=== PATIENT | female | born 1995 | race Caucasian/White ===

== ENCOUNTER 2016-07-11 15:41 | Outpatient (CLI) | payer MEDICAID ==
[2016-07-11] MEDS ORDERED: ZOFRAN IV ONE (15:58)
[2016-07-11 16:06] VITALS: BP 104/61
[2016-07-11 16:40] LABS: Bilirubin,Urine NEG (Negative); Blood,Urine NEG (Negative); Ketones,Urine NEG (Negative); Leukocyte Esterase,Urine TR (Negative); Mucus,Urine FEW /HPF; Nitrite,Urine NEG (Negative); Protein,Urine <15 mg/dL mg/dL (Negative); Urobilinogen,Urine < 2.0 mg/dL (<2.0)
[2016-07-11] MEDS ORDERED: LACTATED RINGERS 500 ML IV ONE (17:00)
== END 2016-07-11 17:09 | disposition home or self-care (01) ==
LOC: TRG 15:41
PROVIDERS: ATTEND Obstetrics & Gynecology
DX: Z34.90 Encounter for supervision of normal pregnancy, unspecified, unspecified trimester (principal); Z3A.00 Weeks of gestation of pregnancy not specified
CPT/HCPCS: 59025; 81001

== ENCOUNTER 2016-10-22 10:06 | Inpatient (IN) | payer MEDICAID ==
--- NOTE | 2016-10-22 12:22 | History and Physical Report ---
History of Present Illness Date of examination: 10/22/16 History of present illness: Patient presents with c/o contractions during observation had cervical change. her corse was complicated by postive GBS testing Menstrual History Regularity: regular Menses every: 28 days Duration: 4 LMP: 01/07/2016 LMP reliability: month known LMP character: normal test type: urine test Date: 06/03/2016 BC at conception: none Planned ? yes EDC Confirmation: 10/26/2016 Past History : 2 Term Births: 0 Premature Births: 0 Living Children: 0 Para: 0 Mult. Births: 0 Prev : 0 Prev. attempt? 0 Aborta: 1 Elect. Ab: 0 Spont. Ab: 1 Ectopics: 0 # 1 Delivery date: 08/2015 Weeks Gestation: 6 Delivery type: SAB Comments: no D&C Past Medical History: Negative Past Medical History Past Surgical History: negative Past Medical History Anesthesia Complications: negative Anemia: negative Autoimmune Disorder: negative Bleeding Disorder: negative Blood Transfusions: negative Breast Disease: negative Diabetes: negative Heart Disease: negative Hypertension: negative Hepatitis/Liver Disease: negative Kidney Disease/UTI: negative Neurologic/Epilepsy/Migraines: negative Phlebitis/Varicosities: negative Psychiatric: negative Pulmonary Disease/Asthma: negative Thyroid Disease: negative Hospitalizations: negative Surgery (Non-supervisor brine): negative Abnormal PAP: <21 y/o Infertility: negative Uterine Anomaly: negative Uterine Surgery (not C/S): negative Other Gynecologic Problems: negative Family Hx: DM - MGM HTN - M aunt Infection History Hx of STD: none HIV Risk Eval: low risk Hepatitis B Risk Eval: low risk Personal hx. of genital herpes: no Partner hx. of genital herpes: no Rash, Viral, or Febrile illness since last LMP? no Varicella/Chicken Pox Status: Unknown TB Risk: no Genetic History Congenital Heart Defect: Mom: no Dad: no Alda Disease: Mom: no Dad: no Thalassemia Mom: no Dad: no Neural Tube Defect Mom: no Dad: no Down's Syndrome Mom: no Dad: no Sriram-Sachs Mom: no Dad: no Sickle Cell Disease/Trait Mom: no Dad: no Hemophilia Mom: no Dad: no Muscular Dystrophy Mom: no Dad: no Cystic Fibrosis Mom: no Dad: no Chambers Chorea Mom: no Dad: no Mental Retardation Mom: no Dad: no Fragile X Mom: no Dad: no Other Genetic/Chromosomal Disorder Mom: no Dad: no Child w/other defect Mom: no Dad: no Enviromental Exposures Xray Exposure: no Medication, drug, or alcohol use since LMP: no Chemical/Other Exposure: no Exposure to Cat Liter: no Hx of Parvovirus (Fifth Disease): no Occupational Exposure to Children: none Current Allergies: No known allergies Past History - Obstetrical History Expected Date of Delivery: 10/26/16 Actual Gestation: 39 Week(s) 3 Day(s) : 2 Para: 0 Hx # Term Pregnancies: 0 Number of Pregnancies: 0 Spontaneous Abortions: 1 Induced : 0 Number of Living Children: 0 Medications and Allergies Allergies Allergy/AdvReac Type Severity Reaction Status Date / Time No Known Allergies Allergy Unverified 07/11/16 15:56 - Vital Signs Vital signs: Vital Signs Pulse Pulse Ox 79 98 10/22/16 10:31 10/22/16 10:31 Temp Pulse Resp BP Pulse Ox 82 88 10/22/16 10:53 10/22/16 10:53 Results Result Diagrams: 10/22/16 12:15 All other labs normal. Assessment and Plan - Patient Problems (1) Active labor at term Current Visit: Yes Status: Acute Plan to address problem: Admit to labor and delivery follow normal labor protocol. (2) Group B streptococcal carriage complicating Current Visit: Yes Status: Acute Plan to address problem: We'll give and a robotic prophylaxis
[2016-10-22] MEDS ORDERED: MINERAL OIL PO PRN (12:24)
[2016-10-22] MEDS ORDERED: XYLOCAINE 2% INFILTRATI ONE (12:24)
[2016-10-22] MEDS ORDERED: ePHEDrine SULFATE IV PRN ×2 (12:24→14:22)
[2016-10-22] MEDS ORDERED: BRETHINE SUB-Q PRN (12:24)
[2016-10-22] MEDS ORDERED: BRETHINE IVP PRN (12:24)
[2016-10-22] MEDS ORDERED: PHENERGAN PO PRN ×2 (12:24→19:04)
[2016-10-22] MEDS ORDERED: STADOL IV PRN (12:24)
[2016-10-22] MEDS ORDERED: POLYCILLIN/NS 2 GM/100 ML 2 GM/100 ML BAG IV ONE (12:30)
[2016-10-22] MEDS ORDERED: LACTATED RINGERS 1,000 ML IV SCH (13:00)
[2016-10-22] MEDS ORDERED: PITOCin/NS 20 UNIT/1000ML DRIP 20 UNITS/1,000 ML BAG IV SCH ×2 (13:00→19:04)
[2016-10-22 13:15] LABS: Hemoglobin 11.7 gm/dl (10.1-14.3); White Blood Count 14.9 K/mm3 (4.5-11.0)
[2016-10-22 13:40] LABS: Hematocrit 35.5 % (30.3-42.9); Mean Corpuscular HGB Conc 32 % (30-34); Mean Corpuscular Hemoglobin 25 pg (28-32); Mean Corpuscular Volume 79 fl (79-97); Platelet Count 388 K/mm3 (140-440); Red Blood Count 4.52 M/mm3 (3.65-5.03); Red Cell Distribution Width 16.5 % (13.2-15.2)
[2016-10-22] MEDS ORDERED: ePHEDrine SULFATE ONE (14:05)
[2016-10-22] MEDS ORDERED: NARCAN 2 MG/2 ML IV PRN (14:22)
--- NOTE | 2016-10-22 14:22 | Anesthesia Consultation ---
Anesthesia Consult and Med Hx Date of service: 10/22/16 - Airway Anesthetic Teeth Evaluation: Good ROM Head & Neck: Adequate Mental/Hyoid Distance: Adequate Mallampati Class: Class II Intubation Access Assessment: Probably Good - Pulmonary Exam CTA: Yes - Cardiac Exam Cardiac Exam: RRR - Pre-Operative Health Status ASA Pre-Surgery Classification: ASA2 Proposed Anesthetic Plan: Epidural, Spinal - Pulmonary Hx Asthma: No - Cardiovascular System Hx Hypertension: No - Central Nervous System Hx Seizures: No Hx Psychiatric Problems: No - Endocrine Hx Renal Disease: No Hx Hypothyroidism: No Hx Hyperthyroidism: No - Hematic Hx Anemia: No Hx Sickle Cell Disease: No - Additional Comments Anesthesia Medical History Comments: +IUP
[2016-10-22] MEDS ORDERED: fentaNYL-BUPIV 2 MCG/ML-0.125% 200 MCG/100 ML BAG EPIDURAL SCH (15:00)
[2016-10-22] MEDS ORDERED: METHERGINE IM ONE ×2 (16:04→16:29)
[2016-10-22] MEDS ORDERED: POLYCILLIN/NS 1 GM/50 ML 1 GM/50 ML BAG IV SCH (16:26)
--- NOTE | 2016-10-22 16:51 | Procedure Note ---
OB Delivery Note - Delivery Date of Delivery: 10/22/16 Surgeon: LISA SWANSON Estimated blood loss: other (400cc) - Vaginal Delivery presentation: vertex Delivery position: OA Intrapartum events: meconium Delivery induction: none Delivery monitor: external FHT, external uterine Route of delivery: Delivery placenta: spontaneous Delivery cord: 3 umbilical vessels Episiotomy: none Delivery laceration: vaginal side wall Delivery repair: vicryl Anesthesia: epidural Delivery comments: Delivery complicated by a left vaginal sidewall laceration and a left vulva laceration both repaired with 3-0 Vicryl Methergine given due to uterine uterine atony post delivery. - Infant A at 1 minute: 8 at 5 minutes: 9 Infant Gender: Female
[2016-10-22] MEDS ORDERED: DULCOLAX PR PRN (19:04)
[2016-10-22] MEDS ORDERED: BENADRYL PO PRN (19:04)
[2016-10-22] MEDS ORDERED: MILK OF MAGNESIA PO PRN (19:04)
[2016-10-22] MEDS ORDERED: ZOFRAN IV PRN (19:04)
[2016-10-22] MEDS ORDERED: TYLENOL PO PRN (19:04)
[2016-10-22] MEDS ORDERED: TUCKS PAD TP PRN (19:04)
[2016-10-22] MEDS ORDERED: DERMOPLAST TP PRN (19:04)
[2016-10-22] MEDS ORDERED: NORCO 5/325 PO PRN (19:04)
[2016-10-22] MEDS ORDERED: LANSINOH TP PRN (19:04)
[2016-10-22] MEDS ORDERED: SODIUM CHLORIDE FLUSH SYRINGE 10 ML IV NR (19:04)
[2016-10-22] MEDS: MOTRIN PO SCH (20:28)
[2016-10-23] MEDS: COLACE PO SCH ×3 (00:21→22:53)
[2016-10-23] MEDS: MOTRIN PO SCH ×4 (02:35→22:04)
[2016-10-23 04:52] LABS: Hemoglobin 8.4 gm/dl (10.1-14.3)
[2016-10-23] MEDS ORDERED: BOOSTRIX IM ONE (06:00)
[2016-10-23 08:43] LABS: Hematocrit 27.7 % (30.3-42.9); Hemoglobin 8.8 gm/dl (10.1-14.3)
[2016-10-23] MEDS: PRENATAL VITAMIN PO SCH (10:17)
--- NOTE | 2016-10-23 12:42 | Progress Note ---
Assessment and Plan - Patient Problems (1) Active labor at term Current Visit: Yes Status: Acute (2) Group B streptococcal carriage complicating Current Visit: Yes Status: Acute (3) Encounter for full-term uncomplicated delivery Current Visit: Yes Status: Acute Plan to address problem: Patient doing well continue routine care (4) Anemia due to acute blood loss Current Visit: Yes Status: Acute Plan to address problem: Patient with initial drop in her hemoglobin and hematocrit. Repeat H&H stable patient without orthostatic symptoms and no complaint of heavy bleeding at present Subjective Date of service: 10/23/16 Interval history: Patient without complaints Objective - Constitutional Vitals: Vital Signs - 12hr 10/23/16 10/23/16 10/23/16 02:35 04:00 08:00 Temperature 98.6 F 97.7 F Pulse Rate [ 59 L 60 From Monitor] Respiratory 18 16 20 Rate Blood Pressure 104/79 103/56 [Right Arm] General appearance: Present: no acute distress - Respiratory Respiratory effort: normal - Breasts Breasts: deferred - Cardiovascular Rhythm: regular - Gastrointestinal General gastrointestinal: Present: soft, non-tender Rectal Exam: deferred - Genitourinary Female genitourinary: deferred - Integumentary Integumentary: clear, warm, dry - Psychiatric Psychiatric: memory intact, appropriate mood/affect, intact judgment & insight - Labs CBC & Chem 7: 10/23/16 08:25 Labs: Abnormal lab results 10/22/16 10/23/16 10/23/16 Range/Units 12:15 04:35 08:25 WBC 14.9 H (4.5-11.0) K/mm3 Hgb 8.4 L D 8.8 L (10.1-14.3) gm/dl Hct 26.0 L D 27.7 L (30.3-42.9) % MCH 25 L (28-32) pg RDW 16.5 H (13.2-15.2) %
[2016-10-24] MEDS: MOTRIN PO SCH ×3 (00:12→07:45)
--- NOTE | 2016-10-24 06:52 | Discharge Summary ---
Providers - Providers Date of Admission: 10/22/16 13:03 Date of discharge: 10/24/16 (pt agrees with d/c) Attending physician: LISA SWANSON 10/22/16 19:04 Consult to Petroleum Geologist [CONS] Routine Reason For Exam: assistance with , SNS Primary care physician: LISA SWANSON Hospitalization Reason for admission: active labor Delivery: Episiotomy: none Laceration: 2nd degree Incision: normal, dry, intact Other procedures: none complications: none Discharge diagnosis: IUP at term delivered [place] baby: female Hospital course: uncomplicated vaginal delivery Pt w/o complaint VSS FF below umb Lochia small Perineum slight swelling intact H &H 02/19 drop r/t blood loss from delivery Pt is w/o sx of anemia. Doing well s/ p vag delivery Was GBS+ may go today P: d/c today with instructions RTO 4 weeks for PP care Condition at discharge: Good Disposition: DISCHARGED TO HOME OR SELFCARE - Discharge Diagnoses (1) Spontaneous vaginal delivery Status: Acute Comment: RTO 4 weeks PP care Plan - Discharge Medications Prescriptions: Docusate Sodium [Colace] 100 mg PO BID PRN #60 capsule PRN Reason: Constipation Ferrous Sulfate [Feosol 325 MG tab] 325 mg PO BID #60 tablet Ibuprofen [Motrin 800 MG tab] 800 mg PO TID PRN #30 tablet PRN Reason: Pain - Provider Discharge Summary Activity: routine, no sex for 6 weeks, no heavy lifting 4 weeks, no strenuous exercise Diet: routine Instructions: routine Additional instructions: [] Smoking cessation referral if applicable(refer to patient education folder for contact #) [] Refer to [facility] Booklet Call your doctor immediately for: * Fever > 100.5 * Heavy vaginal bleeding ( >1 pad per hour) * Severe persistent headache * Shortness of breath * Reddened, hot, painful area to leg or breast * Drainage or odor from incision. * Keep incision clean and dry at all times and follow doctor's instructions regarding bathing/showering - Follow up plan Follow up: LISA SWANSON MD [Primary Care Provider] - 11/28/16 (Congratulations! Please call [phone] to schedule your visit in 4 weeks. Take medication as prescribed. Call with concerns.)
[2016-10-24] MEDS: PRENATAL VITAMIN PO SCH (09:43)
[2016-10-24] MEDS: COLACE PO SCH (09:44)
[2016-10-24] MEDS ORDERED: FLUARIX QUAD 2016-2017(36 MOS+) IM ONE (12:00)
[2016-10-24 17:01] VITALS: BP 110/72
== END 2016-10-24 18:20 | disposition home or self-care (01) | DRG 775 ==
LOC: TRG 10:06 → LD 13:03 → TRG 13:03 → OB 18:34
PROVIDERS: ADMIT Obstetrics & Gynecology; ATTEND Obstetrics & Gynecology
PROC: 10E0XZZ Delivery of Products of Conception, External Approach (ICD-10-PCS; principal; 2016-10-22)
PROC: 0KQM0ZZ Repair Perineum Muscle, Open Approach (ICD-10-PCS; 2016-10-22)
PROC: 3E0234Z Introduction of Serum, Toxoid and Vaccine into Muscle, Percutaneous Approach (ICD-10-PCS; 2016-10-22)
PROC: 00HU33Z Insertion of Infusion Device into Spinal Canal, Percutaneous Approach (ICD-10-PCS; 2016-10-22)
PROC: 3E0R3CZ (ICD-10-PCS; 2016-10-22)
DX: O99.824 Streptococcus B carrier state complicating childbirth (principal); O77.0 Labor and delivery complicated by meconium in amniotic fluid; O99.02 Anemia complicating childbirth; D62 Acute posthemorrhagic anemia; O70.1 Second degree perineal laceration during delivery; Z3A.39 39 weeks gestation of pregnancy; Z37.0 Single live birth
CPT/HCPCS: 36415; 85014; 85018; 85027; 86850; 86900; 86901; 90471; 90686; 90715; J0290; J0595; J2210; J2590; J7120

== ENCOUNTER 2017-12-28 12:37 | Inpatient (IN) | payer MEDICAID ==
[2017-12-28] MEDS ORDERED: LACTATED RINGERS 1,000 ML ONE (16:07)
[2017-12-28] MEDS ORDERED: LACTATED RINGERS 1,000 ML IV SCH ×2 (17:00→19:00)
[2017-12-28] MEDS ORDERED: ZOFRAN IV PRN (18:01)
[2017-12-28] MEDS ORDERED: POLYCILLIN/NS 2 GM/100 ML 2 GM/100 ML BAG IV ONE (18:01)
[2017-12-28] MEDS ORDERED: ePHEDrine SULFATE IV PRN (18:01)
[2017-12-28] MEDS ORDERED: XYLOCAINE 2% INFILTRATI ONE (18:01)
[2017-12-28] MEDS ORDERED: MINERAL OIL PO PRN (18:01)
[2017-12-28] MEDS ORDERED: BRETHINE SUB-Q PRN (18:01)
--- NOTE | 2017-12-28 18:13 | History and Physical Report ---
History of Present Illness Date of examination: 12/28/17 (pt sent to Triage from office for r/o labor) History of present illness: EDC Confirmation: 01/03/2018 Gestational Age: 20 weeks Past History : 2 Term Births: 1 Premature Births: 0 Living Children: 1 Para: 1 Mult. Births: 0 Prev : 0 Prev. attempt? 0 Aborta: 1 Elect. Ab: 0 Spont. Ab: 1 Ectopics: 0 # 1 Delivery date: 08/2015 Weeks Gestation: 6 Delivery type: SAB Comments: no D&C # 2 Delivery date: 10/22/2016 Weeks Gestation: 39 Delivery type: Vaginal Hours of labor: 9 Anesthesia type: epidural Delivery location: [facility] Infant Sex: female weight: 8.63 Past Surgical History: negative Past Medical History Anesthesia Complications: negative Anemia: negative Autoimmune Disorder: negative Bleeding Disorder: negative Blood Transfusions: negative Breast Disease: negative Diabetes: negative Heart Disease: negative Hypertension: negative Hepatitis/Liver Disease: negative Kidney Disease/UTI: negative Neurologic/Epilepsy/Migraines: negative Phlebitis/Varicosities: negative Psychiatric: negative Pulmonary Disease/Asthma: negative Thyroid Disease: negative Hospitalizations: negative Surgery (Non-health care analyst): negative Infection History Hx of STD: none HIV Risk Eval: low risk Hepatitis B Risk Eval: low risk Personal hx. of genital herpes: no Partner hx. of genital herpes: no Varicella/Chicken Pox Status: Previous Disease Genetic History Congenital Heart Defect: Mom: no Dad: no Alda Disease: Mom: no Dad: no Thalassemia Mom: no Dad: no Neural Tube Defect Mom: no Dad: no Down's Syndrome Mom: no Dad: no Sriram-Sachs Mom: no Dad: no Sickle Cell Disease/Trait Mom: no Dad: no Hemophilia Mom: no Dad: no Muscular Dystrophy Mom: no Dad: no Cystic Fibrosis Mom: no Dad: no Vevay Chorea Mom: no Dad: no Mental Retardation Mom: no Dad: no Fragile X Mom: no Dad: no Other Genetic/Chromosomal Disorder Mom: no Dad: no Child w/other defect Mom: no Dad: no Enviromental Exposures Xray Exposure: no Medication, drug, or alcohol use since LMP: no Chemical/Other Exposure: no Exposure to Cat Liter: no Hx of Parvovirus (Fifth Disease): no Active Medications (reviewed today): VITAMINS () ORTHO MICRONOR 0.35 MG ORAL TABLET (NORETHINDRONE) 1 po qday FORMULA 27-1 MG ORAL TABLET ( VIT-FE FUMARATE-FA) 1 po q day as directed Current Allergies (reviewed today): No known allergies Past History - Obstetrical History Expected Date of Delivery: 01/03/18 Actual Gestation: 39 Week(s) 1 Day(s) : 3 Para: 1 Hx # Term Pregnancies: 1 Spontaneous Abortions: 1 Number of Living Children: 1 Medications and Allergies Allergies Allergy/AdvReac Type Severity Reaction Status Date / Time No Known Allergies Allergy Unverified 07/11/16 15:56 Home Medications Medication Instructions Recorded Confirmed Last Taken Type Docusate Sodium [Colace] 100 mg PO BID PRN #60 capsule 10/24/16 Unknown Rx Ferrous Sulfate [Feosol 325 MG tab] 325 mg PO BID #60 tablet 10/24/16 Unknown Rx Ibuprofen [Motrin 800 MG tab] 800 mg PO TID PRN #30 tablet 10/24/16 Unknown Rx Active Meds: Active Medications Ephedrine Sulfate (Ephedrine Sulfate) 10 mg IV Q2M PRN PRN Reason: Hypotension Fentanyl (Sublimaze) 100 mcg IV Q2H PRN PRN Reason: Labor Pain Lactated Ringer's (Lactated Ringers) 1,000 mls @ 150 mls/hr IV DIRECT BRITT Ampicillin Sodium (Ampicillin/Ns 1 Gm/50 Ml) 1 gm in 50 mls @ 100 mls/hr IV Q4HR BRITT; Protocol Ampicillin Sodium (Polycillin/Ns 2 Gm/100 Ml) 2 gm in 100 mls @ 100 mls/hr IV ONCE ONE; Protocol Stop: 12/28/17 19:00 Lactated Ringer's (Lactated Ringers) 1,000 mls @ 125 mls/hr IV DIRECT BRITT Oxytocin/Sodium Chloride (Pitocin/Ns 20 Unit/1000ml Drip) 20 units in 1,000 mls @ 125 mls/hr IV DIRECT BRITT Oxytocin/Sodium Chloride (Pitocin/Ns 30 Unit/500ml) 30 units in 500 mls @ 4 mls /hr IV TITR BRITT; Protocol Lidocaine (Xylocaine 2%) 20 ml INFILTRATI ONCE ONE Stop: 12/28/17 18:02 Mineral Oil (Mineral Oil) 30 ml PO QHS PRN PRN Reason: Constipation Ondansetron HCl (Zofran) 4 mg IV Q8H PRN PRN Reason: Nausea And Vomiting Terbutaline Sulfate (Brethine) 0.25 mg SUB-Q ONCE PRN PRN Reason: Hyperstimulation/Hypertonicity - Vital Signs Vital signs: Vital Signs Pulse BP Pulse Ox 111 H 109/72 97 12/28/17 13:06 12/28/17 13:06 12/28/17 13:06 Temp Pulse Resp BP Pulse Ox 97.8 F 91 H 16 114/77 100 12/28/17 13:32 12/28/17 17:49 12/28/17 13:32 12/28/17 15:33 12/28/17 17:49 - Physical Exam Breasts: Positive: deferred Cardiovascular: Regular rate, Normal S1, Normal S2 Lungs: Positive: Normal air movement Abdomen: Positive: normal appearance, soft, normal bowel sounds. Negative: distention, tenderness Genitourinary (Female): Positive: normal perenium Vulva: both: normal Vagina: Positive: normal moisture. Negative: discharge Cervix: Negative: lesion, discharge Uterus: Positive: normal size, normal contour Adnexa: both: normal Anus/Rectum: Positive: normal perianal skin, heme negative. Negative: rectal mass, hemorrhoids Extremities: Positive: normal Deep Tendon Reflex Grade: Normal +2 - Obstetrical FHR: category 1 Uterine Contraction Monitor Mode: External Cervical Dilatation: 6 (BBOW) Cervical Effacement Percentage: 90 station: -1 Uterine Contraction Pattern: Regular Uterine Tone Measurement Phase: Resting Uterine Contraction Intensity: Moderate Results All other labs normal. Strep Gp B EDIN [A] Positive HBsAg Screen Negative Negative *1 RPR Non Reactive Non Reactive *2 Rubella Antibodies, IgG 1.63 index Immune >0.99 *3 Non-immune <0.90 Equivocal 0.90 - 0.99 Immune >0.99 ABO Grouping A *4 Rh Factor Positive *5 Please note: Prior records for this patient's ABO / Rh type are not available for additional verification. Antibody Screen Negative Negative *6 WBC 10.3 x10E3/uL 3.4-10.8 *7 RBC 4.04 x10E6/uL 3.77-5.28 *8 Hemoglobin [L] 10.8 g/dL 11.1-15.9 *9 Hematocrit [L] 33.8 % 34.0-46.6 *10 MCV 84 fL 79-97 *11 MCH 26.7 pg 26.6-33.0 *12 MCHC 32.0 g/dL 31.5-35.7 *13 RDW [H] 16.3 % 12.3-15.4 *14 Platelets 358 x10E3/uL 150-379 *15 Neutrophils 74 % Not Estab. *16 Lymphs 16 % Not Estab. *17 Monocytes 8 % Not Estab. *18 Eos 2 % Not Estab. *19 Basos 0 % Not Estab. *20 ! Immature Cells <No Reported Value> *21 Neutrophils (Absolute) [H] 7.7 x10E3/uL 1.4-7.0 *22 Lymphs (Absolute) 1.6 x10E3/uL 0.7-3.1 *23 Monocytes(Absolute) 0.9 x10E3/uL 0.1-0.9 *24 Eos (Absolute) 0.2 x10E3/uL 0.0-0.4 *25 Baso (Absolute) 0.0 x10E3/uL 0.0-0.2 *26 ! Immature Granulocytes 0 % Not Estab. *27 ! Immature Grans (Abs) 0.0 x10E3/uL 0.0-0.1 *28 ! NRBC <No Reported Value> *29 Hematology Comments: <No Reported Value> *30 Tests: (2) Panel 533748 ([id number]) HIV Screen 4th Generation wRfx Non Reactive Non Reactive *31 Tests: (3) HCV Ab w/Rflx to Verification (473865) ! HCV Ab <0.1 s/co ratio 0.0-0.9 *32 Tests: (4) Comment: (179336) ! Comment: SPRCS *33 Non reactive HCV antibody screen is consistent with no HCV infection, unless recent infection is suspected or other evidence exists to indicate HCV infection. Tests: (5) Urine Culture, Routine (773140) Urine Culture, Routine [A] Final report *34 Tests: (6) Result ([id number]) ! Result 1 [A] STAPEP Assessment and Plan 22yo @ 39 weeks in active labor GBS+ Ampicillin ordered per protocol. Orders in EMR Anticipate delivery. aware of admission.
[2017-12-28] MEDS: SUBLIMAZE IV PRN ×2 (18:24→19:35)
[2017-12-28] MEDS ORDERED: PITOCin/NS 20 UNIT/1000ML DRIP 20 UNITS/1,000 ML BAG IV SCH (19:00)
[2017-12-28] MEDS ORDERED: PITOCin/NS 30 UNIT/500ML 30 UNITS/500 ML BAG IV SCH (19:00)
[2017-12-28 19:02] LABS: Hematocrit 31.8 % (30.3-42.9); Mean Corpuscular HGB Conc 31 % (30-34); Mean Corpuscular Hemoglobin 22 pg (28-32); Mean Corpuscular Volume 69 fl (79-97); Platelet Count 478 K/mm3 (140-440); Red Blood Count 4.64 M/mm3 (3.65-5.03); Red Cell Distribution Width 18.6 % (13.2-15.2)
[2017-12-28] MEDS ORDERED: METHERGINE IM ONE (19:22)
--- NOTE | 2017-12-28 19:48 | Procedure Note ---
OB Delivery Note - Delivery Date of Delivery: 12/28/17 Concrete Pipe Machine Operator: NELSON MENSAH Estimated blood loss: 300cc - Vaginal Delivery presentation: vertex Delivery position: OA Intrapartum events: other(please specify) (GBS+) Delivery induction: none Delivery monitor: external FHT, external uterine Delivery placenta: spontaneous Delivery cord: 3 umbilical vessels Episiotomy: none Delivery laceration: none Anesthesia: intravenous Delivery comments: live born female over intact perineum Baby placed on mom's abdomen Cord blood obtained Placenta and membrane del complete and intact Pitocin IVFs Uterus boggy Manual exploration of uterus lg clot removed. Methergine IM given 8/9, EBL 300, Wgt 8-13 Mom and baby remain LDR stable FF @ umb Lochia mod. - Infant A at 1 minute: 8 at 5 minutes: 9 Gender: Female (wgt 8-13)
[2017-12-28] MEDS ORDERED: NORCO 5/325 PO PRN (19:50)
[2017-12-28] MEDS ORDERED: LANSINOH TP PRN (19:50)
[2017-12-28] MEDS ORDERED: PHENERGAN PO PRN (19:50)
[2017-12-28] MEDS ORDERED: DULCOLAX PR PRN (19:50)
[2017-12-28] MEDS ORDERED: BENADRYL PO PRN (19:50)
[2017-12-28] MEDS ORDERED: MILK OF MAGNESIA PO PRN (19:50)
[2017-12-28] MEDS ORDERED: TUCKS PAD TP PRN (19:50)
[2017-12-28] MEDS ORDERED: TYLENOL PO PRN (19:50)
[2017-12-28] MEDS ORDERED: SODIUM CHLORIDE FLUSH SYRINGE 10 ML IV NR (20:00)
[2017-12-28] MEDS ORDERED: AMPICILLIN/NS 1 GM/50 ML 1 GM/50 ML BAG IV SCH (22:02)
[2017-12-29] MEDS: MOTRIN PO SCH ×4 (00:45→18:20)
--- NOTE | 2017-12-29 09:07 | Progress Note ---
Assessment and Plan PPD#1 s/p , baby to be allow home tomorrow d/t +GBS Continue post SND pathway - Patient Problems (1) Spontaneous vaginal delivery Current Visit: Yes Status: Acute (2) Group B streptococcal carriage complicating Current Visit: Yes Status: Acute (3) Anemia Current Visit: Yes Status: Acute Qualifiers: Iron deficiency anemia type: chronic blood loss Qualified Code(s): D50.0 - Iron deficiency anemia secondary to blood loss (chronic) Plan to address problem: Present on admission, h/h pending Subjective - Subjective Date of service: 12/29/17 Principal diagnosis: PPD#1 s/p Interval history: Language line used, [id number]. Resting in bed, no complaints, minimal bleeding Patient reports: appetite normal, pain well controlled Objective - Vital Signs Latest vital signs: Vital Signs Temp Pulse Resp BP BP Pulse Ox 12/29/17 08:21 98.0 F 65 20 102/61 98 12/29/17 04:15 98.7 F 77 18 101/78 12/28/17 23:30 98.6 F 67 18 102/62 12/28/17 22:33 66 99 12/28/17 22:28 82 126/87 77 L 12/28/17 22:23 63 98 12/28/17 22:19 66 93 12/28/17 22:18 64 99 12/28/17 22:13 70 124/88 99 12/28/17 22:08 60 98 12/28/17 22:03 65 98 12/28/17 21:58 67 124/84 99 12/28/17 21:53 60 99 12/28/17 21:48 75 97 12/28/17 21:43 57 L 16 126/84 126/84 96 12/28/17 21:38 69 98 12/28/17 21:33 62 97 12/28/17 21:28 58 L 16 115/72 115/72 96 12/28/17 21:23 65 98 12/28/17 21:18 65 97 12/28/17 21:16 65 94 12/28/17 21:13 60 16 107/64 107/64 96 12/28/17 21:08 63 97 12/28/17 21:03 68 97 12/28/17 20:58 65 97 07/05/18 20:55 77 91 07/05/18 20:53 70 93 07/05/18 20:50 65 94 07/05/18 20:48 62 96 07/05/18 20:43 76 96 07/05/18 20:40 60 91 07/05/18 20:38 69 96 07/05/18 20:33 63 97 07/05/18 20:28 65 98 07/05/18 20:23 70 98 07/05/18 20:18 66 98 07/05/18 20:13 65 97 07/05/18 20:08 90 97 07/05/18 20:03 80 97 07/05/18 19:58 81 97 07/05/18 19:53 89 98 07/05/18 19:50 94 H 91 07/05/18 19:48 83 99 07/05/18 19:43 69 98 07/05/18 19:38 102 H 97 07/05/18 19:35 16 07/05/18 19:33 110 H 93 07/05/18 19:29 98.4 F 107 H 16 121/63 121/63 92 07/05/18 19:28 113 H 95 07/05/18 19:08 94 H 99 07/05/18 19:03 99 H 97 07/05/18 18:58 91 H 98 07/05/18 18:53 86 100 07/05/18 18:48 85 99 07/05/18 18:43 93 H 100 07/05/18 18:38 74 99 07/05/18 18:33 86 97 07/05/18 18:31 89 102/59 07/05/18 18:27 98.4 F 89 20 102/59 97 07/05/18 18:24 22 07/05/18 17:49 91 H 100 07/05/18 17:44 87 97 07/05/18 17:39 100 H 99 07/05/18 17:34 84 97 07/05/18 17:29 78 97 07/05/18 17:24 100 H 99 07/05/18 17:21 89 94 07/05/18 17:19 85 100 07/05/18 17:14 72 98 07/05/18 17:11 68 94 07/05/18 17:09 85 99 07/05/18 17:04 75 97 07/05/18 16:59 88 99 12/28/17 16:54 89 98 12/28/17 16:49 82 100 12/28/17 16:44 77 97 12/28/17 16:39 88 99 12/28/17 16:34 91 H 99 12/28/17 16:29 87 100 12/28/17 15:33 96 H 114/77 12/28/17 13:32 97.8 F 16 12/28/17 13:26 105 H 96 12/28/17 13:21 121 H 97 12/28/17 13:16 112 H 96 12/28/17 13:11 93 H 96 12/28/17 13:06 118 H 109/72 97 Intake and Output 12/28/17 12/29/17 12/29/17 22:59 06:59 14:59 Intake Total 400 Output Total 1000 Balance -600 Intake: Oral 400 Output: Urine 1000 Void 1000 Other: Total, Intake Amount 200 Total, Output Amount 500 Estimated Blood Loss 300 - Exam Breasts: Present: normal. Absent: engorged Lungs: Present: Normal air movement Abdomen: Present: normal appearance, soft Uterus: Present: fundal height below umbilicus Extremities: Present: normal. Absent: tenderness - Labs Labs: Abnormal lab results 12/28/17 Range/Units 18:00 Hgb 10.0 L (10.1-14.3) gm/dl MCV 69 L (79-97) fl MCH 22 L (28-32) pg RDW 18.6 H (13.2-15.2) % Plt Count 478 H (140-440) K/mm3
[2017-12-29 10:34] LABS: Hematocrit 26.5 % (30.3-42.9); Hemoglobin 8.3 gm/dl (10.1-14.3)
[2017-12-29] MEDS ORDERED: BOOSTRIX IM ONE (19:50)
[2017-12-29] MEDS ORDERED: M-M-R II VACCINE SUB-Q ONE (19:50)
[2017-12-30] MEDS: MOTRIN PO SCH ×3 (00:31→11:48)
--- NOTE | 2017-12-30 11:58 | Discharge Summary ---
Providers - Providers Date of Admission: 12/28/17 18:31 Date of discharge: 12/30/17 Attending physician: RAJESH AMBROSE Primary care physician: RAJESH AMBROSE Hospitalization Reason for admission: active labor Delivery: Episiotomy: none Laceration: none Other procedures: none complications: none Discharge diagnosis: IUP at term delivered [place] baby: female Hospital course: Patient was admitted underwent a normal spontaneous vaginal delivery. Her course was benign. She was afebrile throughout her stay. Her day 1 hematocrit was 26.5%. Patient was asymptomatic. Patient is presently bottle and breast-feeding. She is undecided about control. Patient follow up in office in 4 weeks. Condition at discharge: Good Disposition: DC-01 TO HOME OR SELFCARE - Discharge Diagnoses (1) Encounter for full-term uncomplicated delivery Status: Acute Plan - Discharge Medications Prescriptions: Ferrous Sulfate [Feosol 325 MG tab] 325 mg PO BID #60 tablet Ibuprofen [Motrin 800 MG tab] 800 mg PO Q6H PRN #30 tablet PRN Reason: Pain - Provider Discharge Summary Activity: routine, no sex for 6 weeks Diet: routine Instructions: routine Additional instructions: [] Smoking cessation referral if applicable(refer to patient education folder for contact #) [] Refer to [facility] Booklet Call your doctor immediately for: * Fever > 100.5 * Heavy vaginal bleeding ( >1 pad per hour) * Severe persistent headache * Shortness of breath * Reddened, hot, painful area to leg or breast * Drainage or odor from incision. * - Follow up plan Follow up: RAJESH AMBROSE MD [Primary Care Provider] - 7 Days Forms: [facility] Discharge Summary
[2017-12-30 19:55] VITALS: BP 108/65
== END 2017-12-30 21:00 | disposition home or self-care (01) | DRG 775 ==
LOC: TRG 12:37 → LD 18:31 → OB 23:49
PROVIDERS: ADMIT Obstetrics & Gynecology; ATTEND Obstetrics & Gynecology
PROC: 10E0XZZ Delivery of Products of Conception, External Approach (ICD-10-PCS; principal; 2017-12-28)
PROC: 3E0234Z Introduction of Serum, Toxoid and Vaccine into Muscle, Percutaneous Approach (ICD-10-PCS; 2017-12-29)
DX: O99.824 Streptococcus B carrier state complicating childbirth (principal); Z3A.39 39 weeks gestation of pregnancy; Z37.0 Single live birth; Z23 Encounter for immunization; O99.02 Anemia complicating childbirth; D64.89 Other specified anemias
CPT/HCPCS: 36415; 85014; 85018; 85027; 86592; 86850; 86900; 86901; 96365; 96366; 96372; 96374; J0290; J2210; J2590; J3010; J7120

== ENCOUNTER 2021-05-15 17:37 | Inpatient (IN) | payer MEDICAID ==
[2021-05-15 18:59] LABS: Basophils % (Auto) 0.3 % (0.0-1.8); Eosinophils # (Auto) 0.1 K/mm3 (0.0-0.4); Eosinophils % (Auto) 1.1 % (0.0-4.3); Hematocrit 31.5 % (30.3-42.9); Hemoglobin 9.7 gm/dl (10.1-14.3); Lymphocytes # (Auto) 1.5 K/mm3 (1.2-5.4); Lymphocytes % (Auto) 18.9 % (13.4-35.0); Mean Corpuscular HGB Conc 31 % (30-34); Mean Corpuscular Volume 70 fl (79-97); Monocytes # (Auto) 0.4 K/mm3 (0.0-0.8); Monocytes % (Auto) 4.9 % (0.0-7.3); Platelet Count 416 K/mm3 (140-440); Red Blood Count 4.54 M/mm3 (3.65-5.03); Red Cell Distribution Width 18.5 % (13.2-15.2)
[2021-05-15] MEDS ORDERED: TERBUTALINE 1 MG/1 ML INJ SUB-Q PRN (19:02)
[2021-05-15] MEDS ORDERED: ACETAMINOPHEN 325 MG TAB PO PRN (19:02)
[2021-05-15] MEDS ORDERED: AMPICILLIN/NS 2 GM/100 ML 2 GM/100 ML BAG IV ONE (19:02)
[2021-05-15] MEDS ORDERED: LOPERAMIDE 2 MG CAP PO PRN (19:02)
[2021-05-15] MEDS ORDERED: fentaNYL 100 MCG/2 ML INJ IV PRN (19:02)
[2021-05-15] MEDS ORDERED: miSOPROStol 200 MCG TAB PR PRN (19:02)
[2021-05-15] MEDS ORDERED: MINERAL OIL 30 ML ORAL LIQD PO PRN (19:02)
[2021-05-15] MEDS ORDERED: CARBOPROST TROMETHAMINE 250 MCG/1 ML INJ IM PRN (19:02)
[2021-05-15] MEDS ORDERED: ePHEDrine SULFATE 50 MG/1 ML INJ IV PRN (19:02)
[2021-05-15] MEDS ORDERED: METHYLERGONOVINE MALEATE 0.2 MG/ML VIAL IM PRN (19:02)
[2021-05-15] MEDS ORDERED: OXYTOCIN 10 UNIT/1 ML INJ IM PRN (19:02)
[2021-05-15] MEDS ORDERED: LIDOCAINE (2%) 20 MG/1 ML VIAL 20 ML MDV INFILTRATI ONE (19:02)
[2021-05-15] MEDS ORDERED: BUTORPHANOL 2 MG/1 ML INJ IV PRN (19:02)
[2021-05-15] MEDS ORDERED: OXYTOCIN DRIP 30 UNITS/500 ML BAG IV SCH ×2 (20:00)
[2021-05-15] MEDS: LACTATED RINGERS 1,000 ML IV SCH (20:19)
--- NOTE | 2021-05-15 20:20 | Ultrasound Report ---
ULTRASOUND OBSTETRIC LIMITED INDICATION / CLINICAL INFORMATION: presentation. Clinical Gestational Age (GA) in weeks, days: 40 weeks 1 day TECHNIQUE: Transabdominal. COMPARISON: None available. FINDINGS: Single live IUP in cephalic presentation with heart rate measuring 147 bpm. Signer Name: Cali Mcarthur MD Signed: 05/15/2021 8:16 PM Workstation Name: [id number]
--- NOTE | 2021-05-15 20:48 | History and Physical Report ---
History of Present Illness Date of examination: 05/15/21 Date of admission: 05/15/21 19:02 Chief complaint: LOF at 5pm History of present illness: at 40.2wks by LMP c/w U/S. care at [facility] and same limited to 5visits in the records. Pt came with c/o LOF at 5pm today. Denies vag bleed or headache and admits to movement. Pt denies feeling ctx. records with blood type A+, neg antibody screen, rubella immune; VDRL, HepBsAg and HIV all negative. GC/chlam neg; GBS unknown. Normal 1hrgtt Past History Past Medical History: no pertinent history Past Surgical History: no surgical history - Obstetrical History Expected Date of Delivery: 05/13/21 Actual Gestation: 40 Week(s) 2 Day(s) : 4 Hx # Term Pregnancies: 2 Spontaneous Abortions: 1 Number of Living Children: 2 Medications and Allergies Allergies Allergy/AdvReac Type Severity Reaction Status Date / Time No Known Allergies Allergy Verified 05/15/21 17:56 Home Medications Medication Instructions Recorded Confirmed Last Taken Type Docusate Sodium [Colace] 100 mg PO BID PRN #60 capsule 10/24/16 12/28/17 Unknown Rx Ferrous Sulfate [Feosol 325 MG tab] 325 mg PO BID #60 tablet 10/24/16 12/28/17 Unknown Rx Ibuprofen [Motrin 800 MG tab] 800 mg PO TID PRN #30 tablet 10/24/16 12/28/17 Unknown Rx Ferrous Sulfate [Feosol 325 MG tab] 325 mg PO BID #60 tablet 12/30/17 Unknown Rx Ibuprofen [Motrin 800 MG tab] 800 mg PO Q6H PRN #30 tablet 12/30/17 Unknown Rx Active Meds: Active Medications Acetaminophen (Acetaminophen 325 Mg Tab) 650 mg PO Q4H PRN PRN Reason: Pain, Mild (1-3) Butorphanol Tartrate (Butorphanol 2 Mg/1 Ml Inj) 1 mg IV Q2H PRN PRN Reason: Pain, Moderate(4-6) LABOR PAIN Carboprost Tromethamine (Carboprost Tromethamine 250 Mcg/1 Ml Inj) 250 mcg IM ONCE PRN PRN Reason: Uterine Bleeding Ephedrine Sulfate (Ephedrine Sulfate 50 Mg/1 Ml Inj) 10 mg IV Q2M PRN PRN Reason: Hypotension Fentanyl (Fentanyl 100 Mcg/2 Ml Inj) 100 mcg IV Q2H PRN PRN Reason: Pain,Severe (7-10) LABOR PAIN Oxytocin/Sodium Chloride (Pitocin/Ns 30 Unit/500ml) 30 units in 500 mls @ 2 mls/hr IV TITR BRITT; Protocol Lactated Ringer's (Lactated Ringers) 1,000 mls @ 125 mls/hr IV DIRECT BRITT Last Admin: 05/15/21 20:19 Dose: 125 mls/hr Documented by: Oxytocin/Sodium Chloride (Pitocin/Ns 30 Unit/500ml) 30 units in 500 mls @ 40 mls/hr IV TITR BRITT; Protocol Loperamide HCl (Loperamide 2 Mg Cap) 2 mg PO ONCE PRN PRN Reason: give with Hemabate Methylergonovine Maleate (Methylergonovine Maleate 0.2 Mg/Ml Vial) 0.2 mg IM ONCE PRN PRN Reason: Uterine Bleeding Mineral Oil (Mineral Oil 30 Ml Oral Liqd) 30 ml PO QHS PRN PRN Reason: Constipation Misoprostol (Misoprostol 200 Mcg Tab) 800 mcg NE ONCE PRN PRN Reason: Uterine Bleeding Oxytocin (Oxytocin 10 Unit/1 Ml Inj) 10 unit IM ONCE PRN PRN Reason: Uterine Bleeding Terbutaline Sulfate (Terbutaline 1 Mg/1 Ml Inj) 0.25 mg SUB-Q ONCE PRN PRN Reason: Hyperstimulation/Hypertonicity Review of Systems All systems: negative (LOF) - Vital Signs Vital signs: Vital Signs Pulse BP 89 126/73 05/15/21 18:02 05/15/21 18:02 Temp Pulse Resp BP Pulse Ox 98.0 F 106 H 18 123/79 98 05/15/21 20:30 05/15/21 20:41 05/15/21 20:30 05/15/21 20:30 05/15/21 20:41 - Physical Exam Breasts: Positive: deferred Cardiovascular: Regular rate Lungs: Positive: Normal air movement Genitourinary (Female): Positive: normal external genitalia Vulva: both: normal Uterus: Positive: enlarged (non-tender, gravid) - Obstetrical FHR: category 1 Uterine Contraction Monitor Mode: External Cervical Dilatation: 4 (per triage nurse and PROM) Cervical Effacement Percentage: 70 station: -3 Uterine Contraction Pattern: Irregular Results Result Diagrams: 05/15/21 18:40 Abnormal lab results 05/15/21 Range/Units 18:40 Hgb 9.7 L (10.1-14.3) gm/dl MCV 70 L (79-97) fl MCH 21 L (28-32) pg RDW 18.5 H (13.2-15.2) % Seg Neutrophils % 74.8 H (40.0-70.0) % All other labs normal. Assessment and Plan Term preg with PROM, station high per nurse report 1. Admit to labor and delivery, Amp for unknown GBS, will augment with pitocin if vertex 2. U/S by radiology confirms vertex 3. May have IV pain med or epidural when desired Expect
--- NOTE | 2021-05-15 21:33 | Event Note ---
Date: 05/15/21 Pt re-evaluated after U/S done and FHR with multiple areas of loss of contact; IUPC and FSE placed. Pelvic /. Pt states both her babies were 8lbs and no shoulder dystocia or complication. IV pitocin started. Anticipate .
[2021-05-15] MEDS ORDERED: AMPICILLIN/NS 1 GM/50 ML 1 GM/50 ML BAG IV SCH (23:00)
[2021-05-16] MEDS: LACTATED RINGERS 1,000 ML IV SCH (01:02)
[2021-05-16] MEDS ORDERED: ePHEDrine SULFATE 50 MG/1 ML INJ IV PRN (01:16)
[2021-05-16] MEDS ORDERED: diphenhydrAMINE 50 MG/ML VIAL IV PRN (01:16)
[2021-05-16] MEDS ORDERED: NalbUPHINE 10 MG/1 ML INJ IV PRN (01:16)
[2021-05-16] MEDS ORDERED: ONDANSETRON 4 MG/2 ML INJ IV PRN ×2 (01:16→06:01)
[2021-05-16] MEDS ORDERED: LACTATED RINGERS 250 ML IV SOLN IV ONE (01:16)
[2021-05-16] MEDS ORDERED: NALOXONE 2 MG/2 ML INJ IV PRN (01:16)
--- NOTE | 2021-05-16 01:49 | Anesthesia Consultation ---
Anesthesia Consult and Med Hx Date of service: 05/16/21 - Airway Anesthetic Teeth Evaluation: Good ROM Head & Neck: Adequate Mental/Hyoid Distance: Adequate Mallampati Class: Class II Intubation Access Assessment: Probably Good - Pulmonary Exam CTA: Yes - Cardiac Exam Cardiac Exam: RRR - Pre-Operative Health Status ASA Pre-Surgery Classification: ASA2 Proposed Anesthetic Plan: Epidural - Pulmonary Hx Smoking: No Hx Asthma: No COPD: No Hx Pneumonia: No Hx Sleep Apnea: No - Cardiovascular System Hx Hypertension: No Hx Heart Attack/AMI: No Hx Angina: No - Central Nervous System Hx Seizures: No Hx Psychiatric Problems: No - Gastrointestinal Hx Gastroesophageal Reflux Disease: No - Endocrine Hx Renal Disease: No Hx End Stage Renal Disease: No Hx Liver Disease: No Hx Insulin Dependent Diabetes: No Hx Non-Insulin Dependent Diabetes: No Hx Hypothyroidism: No Hx Hyperthyroidism: No - Hematic Hx Anemia: No Hx Sickle Cell Disease: No - Other Systems Hx Alcohol Use: No
--- NOTE | 2021-05-16 01:50 | Progress Note ---
Labor Epidural - Labor Epidural Start Time: 01:28 Stop Time: 01:40 Performed by:: OCHOA ALCALA Procedure: Patient is requesting epidural for labor and pain. H&P, labs were reviewed. Patient IDed, H&P reviewed, all questions and concerns were answered, and consent was signed. Timeout was performed at bedside. Patient in sitting position. Sterile prep and drape was performed. 3ml of 1% lidocaine skin wheal at L[3]- L [4]. 17-gauge Tuohy epidural needle was advanced to loss of resistance with air technique 7cm. Negative CSF negative blood. Epidural catheter advanced to [12] centimeters. [negative] Aspiration [negative] test dose. Sterile dressing applied. Patient tolerated procedure.
[2021-05-16] MEDS ORDERED: fentaNYL-BUPIV 2 MCG/ML-0.125% 200 MCG/100 ML BAG EPIDURAL SCH (02:00)
--- NOTE | 2021-05-16 02:55 | Procedure Note ---
OB Delivery Note - Delivery Date of Delivery: 05/16/21 Surgeon: LAUREN CUEVAS Estimated blood loss: other (600cc) - Vaginal Delivery presentation: vertex Delivery position: OA Intrapartum events: uterine atony Delivery induction: none Delivery augmentation: pitocin Delivery monitor: external FHT, external uterine, internal FHT, internal uterine Route of delivery: Delivery placenta: spontaneous Delivery cord: 3 umbilical vessels Episiotomy: none Delivery laceration: none Anesthesia: epidural Delivery comments: Nurse called stating pt became complete after epidural received. Vitals with low BP 80/50's and maternal tacchycardia in 130-140's and FHR in 170'-180's with moderate variability. SAVD uncomplicated and placenta delivered spontaneously and complete. Extensive blood loss from uterine atony treated with IV pitocin and methergine. pt sustained no vaginal nor cervical lacerations. Mom and baby stable. ALISHA nurse reports baby with temp of 100.5. Team notified that pt was GBS+ and PROM prior to arrival at the hospital and pt given 2 doses of amp since hospitalization. - A at 1 minute: 8 at 5 minutes: 9 (clear amniotic fluid; wt 3960g) Infant Gender: Female
[2021-05-16] MEDS ORDERED: diphenhydrAMINE 25 MG CAP PO PRN (06:01)
[2021-05-16] MEDS ORDERED: OXYTOCIN DRIP 30 UNITS/500 ML BAG IV SCH (06:01)
[2021-05-16] MEDS ORDERED: PROMETHAZINE 25 MG TAB PO PRN (06:01)
[2021-05-16] MEDS ORDERED: LANOLIN/ZINC/DIMETHICONE (LANSINOH) 7 GM TP PRN (06:01)
[2021-05-16] MEDS ORDERED: WITCH HAZEL/ GLYCERIN PAD TP PRN (06:01)
[2021-05-16] MEDS ORDERED: PROMETHAZINE 25 MG RECT SUPP PR PRN (06:01)
[2021-05-16] MEDS ORDERED: MAGNESIUM HYDROXIDE (MOM) ORAL LIQD UDC PO PRN (06:01)
[2021-05-16] MEDS ORDERED: oxyCODONE /ACETAMINOPHEN 5-325MG TAB PO PRN (06:01)
[2021-05-16] MEDS ORDERED: BENZOCAINE/MENTHOL 20/0.5% TOP SPRAY 56 GM TP PRN (06:01)
[2021-05-16] MEDS: IBUPROFEN 600 MG TAB PO SCH ×3 (06:25→23:59)
[2021-05-16] MEDS: DOCUSATE SODIUM 100 MG CAP PO SCH ×2 (11:05→23:59)
[2021-05-16] MEDS: PRENATAL VIT27-FE FUMARATE-FOLIC ACID VIT TAB PO SCH (11:05)
--- NOTE | 2021-05-16 14:43 | Post Anesthesia Evaluation ---
- Post Anesthesia Evaluation Patient Participated: Yes Airway Patent: Yes Stable Respiratory Function: Yes Nausea/Vomiting: No Temp > 96.8F: Yes Pain Manageable: Yes Adequeate Hydration: Yes Anesthesia Complications: No Block Receding Appropriately: Yes Patient on Ventilator: No
[2021-05-16 16:32] LABS: Hematocrit 28.1 % (30.3-42.9); Hemoglobin 8.6 gm/dl (10.1-14.3)
[2021-05-17] MEDS ORDERED: TETANUS,DIPH,PERTUSS(ACELL) VACCINE 0.5 ML SYRINGE IM ONE (06:00)
[2021-05-17] MEDS: IBUPROFEN 600 MG TAB PO SCH ×2 (06:17→13:45)
[2021-05-17] MEDS ORDERED: FERROUS SULFATE 325 MG TAB PO SCH (10:00)
--- NOTE | 2021-05-17 11:22 | Progress Note ---
Assessment and Plan A: PP Day #1 Asymptomatic Anemia P: Follow Routine Orders Continue PO FeSO4 Depo Provera 150mg IM x 1 dose prior to discharge D/C Home today per patient request RTO in 6 Weeks Subjective - Subjective Date of service: 05/17/21 Patient reports: appetite normal, voiding normally, pain well controlled, flatus, bowel movement, ambulating normally, other (Denies dizziness, shortness of breath, N&V, and fatigue) : doing well, bottle feeding (and ) Objective - Vital Signs Latest vital signs: Vital Signs Temp Pulse Resp BP BP Pulse Ox Pulse Ox 05/17/21 07:50 99 05/17/21 07:24 97.9 F 69 20 111/63 99 05/17/21 01:13 98 F 70 16 114/74 98 05/16/21 19:30 99 05/16/21 18:09 98 05/16/21 16:35 98 F 78 18 96/63 05/16/21 16:08 98 05/16/21 14:08 98 05/16/21 12:59 97.9 F 71 18 98/52 05/16/21 12:07 98 Intake and Output 05/16/21 05/17/21 05/17/21 22:59 06:59 14:59 Intake Total 600 240 Output Total 400 Balance 200 240 Intake: Oral 600 Intake, Free Water 240 Output: Urine 400 Void 400 Other: Total, Intake Amount 360 Total, Output Amount 400 # Voids Void 1 1 - Exam Breasts: Present: normal Cardiovascular: Present: Regular rate Lungs: Present: Clear to auscultation, Normal air movement Abdomen: Present: normal appearance, soft, normal bowel sounds Uterus: Present: normal, firm, fundal height below umbilicus Extremities: Present: normal - Labs Labs: Abnormal lab results 05/16/21 Range/Units 14:55 Hgb 8.6 L (10.1-14.3) gm/dl Hct 28.1 L (30.3-42.9) %
--- NOTE | 2021-05-17 11:23 | Discharge Summary ---
Providers - Providers Date of Admission: 05/15/21 19:02 Date of discharge: 05/17/21 Attending physician: LAUREN CUEVAS Primary care physician: LAUREN CUEVAS Hospitalization Reason for admission: rupture of membranes Delivery: Episiotomy: none Laceration: none Other procedures: none complications: none Discharge diagnosis: IUP at term delivered baby: female Condition at discharge: Good Disposition: 01 HOME / SELF CARE / HOMELESS Plan - Provider Discharge Summary Activity: routine, no sex for 6 weeks, no heavy lifting 4 weeks, no strenuous exercise Diet: routine Instructions: routine Additional instructions: [] Smoking cessation referral if applicable(refer to patient education folder for contact #) [] Refer to [facility]'s [facility] Booklet Call your doctor immediately for: * Fever > 100.5 * Heavy vaginal bleeding ( >1 pad per hour) * Severe persistent headache * Shortness of breath * Reddened, hot, painful area to leg or breast * Drainage or odor from incision. * Keep incision clean and dry at all times and follow doctor's instructions regarding bathing/showering - Follow up plan Follow up: LAUREN CUEVAS MD [Primary Care Provider] - 6 Weeks Forms: [facility] Discharge Summary
[2021-05-17] MEDS ORDERED: medroxyPROGESTERone ACETATE 150 MG/ML SYRINGE IM NR (11:30)
[2021-05-17] MEDS ORDERED: FLU VACC QUAD 2021-22(6MOS UP)/PF 60 MCG/0.5 ML SYRINGE IM ONE (12:00)
[2021-05-17 13:33] VITALS: BP 121/88
[2021-05-17] MEDS: DOCUSATE SODIUM 100 MG CAP PO SCH (13:44)
[2021-05-17] MEDS: PRENATAL VIT27-FE FUMARATE-FOLIC ACID VIT TAB PO SCH (14:01)
== END 2021-05-17 14:38 | disposition home or self-care (01) | DRG 775 ==
LOC: TRG 17:37 → APU 17:40 → TRG 19:02 → LD 19:02 → OB 05-16 05:07
PROVIDERS: ADMIT Obstetrics & Gynecology; ATTEND Obstetrics & Gynecology
PROC: 10E0XZZ Delivery of Products of Conception, External Approach (ICD-10-PCS; principal; 2021-05-16)
PROC: 10H07YZ Insertion of Other Device into Products of Conception, Via Natural or Artificial Opening (ICD-10-PCS; 2021-05-16)
PROC: 3E0R3BZ Introduction of Anesthetic Agent into Spinal Canal, Percutaneous Approach (ICD-10-PCS; 2021-05-16)
PROC: 00HU33Z Insertion of Infusion Device into Spinal Canal, Percutaneous Approach (ICD-10-PCS; 2021-05-16)
PROC: 3E0234Z Introduction of Serum, Toxoid and Vaccine into Muscle, Percutaneous Approach (ICD-10-PCS; 2021-05-17)
DX: O42.02 Full-term premature rupture of membranes, onset of labor within 24 hours of rupture (principal); Z3A.40 40 weeks gestation of pregnancy; Z37.0 Single live birth; Z20.822 Contact with and (suspected) exposure to COVID-19; O90.81 Anemia of the puerperium; O76 Abnormality in fetal heart rate and rhythm complicating labor and delivery; O99.824 Streptococcus B carrier state complicating childbirth; Z23 Encounter for immunization
CPT/HCPCS: 36415; 76815; 85014; 85018; 85025; 86592; 86850; 86900; 86901; 90471; 90686; 90715; G0378; J3490; J0290; J1050; J2210; J2590; J3010; J7120